=== PATIENT | male | born 1955 | race Caucasian/White ===

== ENCOUNTER 2024-04-02 22:46 | Observation (INO) | payer OTHER ==
[2024-04-03 00:48] LABS: BASO % 0.6 % (0-2.0); EOS % 2.1 % (0-4.5); HEMATOCRIT 42.9 % (35.4-49); HEMOGLOBIN 14.3 GM/dL (11.7-16.9); LYMPH % 29.9 % (8-40); MCH 30.3 pg (25.7-33.7); MCHC 33.3 g/dl (32.0-35.9); MEAN CELL VOLUME 90.8 fl (80-96); MEAN PLT VOLUME 7.7 fl (7.5-11.1); MONO % 7.6 % (3.8-10.2); NEUT % 59.8 % (42.8-82.8); PLATELET COUNT 244 10^3/uL (134-434); RBC 4.73 M/mm3 (4.00-5.60); RDW 13.3 % (11.9-15.9); WHITE BLOOD COUNT 8.7 K/mm3 (4.0-10.0)
[2024-04-03 00:57] LABS: INR 1.04 (0.83-1.09); PROTHROMBIN TIME (PATIENT) 11.7 SEC (9.7-13.0)
[2024-04-03 00:59] LABS: ACTIVATED PTT 37.5 SECONDS (25.2-36.5)
[2024-04-03 01:07] LABS: POTASSIUM 3.5 mmol/L (3.5-5.1)
[2024-04-03 01:08] LABS: CALCIUM 9.6 mg/dL (8.5-10.1)
[2024-04-03 01:09] LABS: ALBUMIN 4.1 g/dl (3.4-5.0); BLOOD UREA NITROGEN 21.3 mg/dL (7-18)
[2024-04-03 01:12] LABS: CREATININE 1.3 mg/dL (0.55-1.3)
[2024-04-03 01:17] LABS: BILIRUBIN,TOTAL 0.4 mg/dL (0.2-1); TOT PROT 7.8 g/dl (6.4-8.2)
[2024-04-03 06:07] VITALS: BMI 37.0
[2024-04-03 06:11] LABS: EPI CELLS 2 /uL (0-25.1); HYALINE CASTS 1 /uL (0-3.1); URINE APPEARANCE CLEAR; URINE BACTERIA 0 /uL (0-1359); URINE BILIRUBIN NEGATIVE (NEGATIVE); URINE COLOR YELLOW; URINE GLUCOSE (UA) NEGATIVE (NEGATIVE); URINE KETONE NEGATIVE (NEGATIVE); URINE LEUK ESTERASE NEGATIVE (NEGATIVE); URINE NITRITE NEGATIVE (NEGATIVE); URINE PROTEIN 2+ (NEGATIVE); URINE UROBILINOGEN 0.2 mg/dL (0.2-1.0); URINE WBC 5 /uL (0-25.8)
[2024-04-03 06:30] LABS: COCAINE, UR NEGATIVE (NEGATIVE); URINE AMPHETAMINES NEGATIVE (NEGATIVE); URINE BARBITURATES NEGATIVE (NEGATIVE)
[2024-04-03 06:32] LABS: OPIATES, URI NEGATIVE (NEGATIVE); PHENCYCLIDINE,URINE NEGATIVE (NEGATIVE)
[2024-04-03] MEDS: INSULIN ASPART SLIDING SCALE (NOVOLOG) 1 VIAL SQ SCH (06:54)
[2024-04-03 07:13] LABS: METHADONE, UR NEGATIVE (NEGATIVE); URINE BENZODIAZEPINES NEGATIVE (NEGATIVE)
[2024-04-03] MEDS: TAMSULOSIN HCL 0.4 MG CAP PO SCH (08:30)
[2024-04-03 08:59] LABS: URINE RBC 22.6 /uL (0-23.9)
[2024-04-03 09:42] LABS: BASO % 0.4 % (0-2.0); EOS % 1.8 % (0-4.5); HEMATOCRIT 40.1 % (35.4-49); HEMOGLOBIN 13.6 GM/dL (11.7-16.9); LYMPH % 22.9 % (8-40); MEAN CELL VOLUME 91.2 fl (80-96); MEAN PLT VOLUME 7.8 fl (7.5-11.1); MONO % 6.2 % (3.8-10.2); NEUT % 68.7 % (42.8-82.8); PLATELET COUNT 216 10^3/uL (134-434); RDW 13.3 % (11.9-15.9); WHITE BLOOD COUNT 8.6 K/mm3 (4.0-10.0)
[2024-04-03 09:50] LABS: POTASSIUM 3.9 mmol/L (3.5-5.1)
[2024-04-03 09:51] LABS: CALCIUM 9.2 mg/dL (8.5-10.1)
[2024-04-03 09:54] LABS: BLOOD UREA NITROGEN 18.8 mg/dL (7-18)
[2024-04-03 09:56] LABS: CREATININE 1.1 mg/dL (0.55-1.3); PHOSPHOROUS 4.3 mg/dL (2.5-4.9)
[2024-04-03 09:57] LABS: BILIRUBIN,TOTAL 0.5 mg/dL (0.2-1); TOT PROT 7.2 g/dl (6.4-8.2)
[2024-04-03] MEDS: HYDROCHLOROTHIAZIDE 12.5 MG CAPSULE (FP) PO SCH (10:53)
[2024-04-03] MEDS: ENOXAPARIN NA (PORCINE) 40 MG/0.4 ML DISP.SYRIN SQ SCH (10:53)
[2024-04-03] MEDS: ASPIRIN 81 MG CHEWABLE TABLETS PO SCH (17:54)
[2024-04-03] MEDS: CLOPIDOGREL BISULFATE 75 MG TABLET (FP) PO SCH (17:54)
[2024-04-03] MEDS ORDERED: ROSUVASTATIN CA 20 MG TABLET PO ONE (21:00)
[2024-04-03] MEDS: ROSUVASTATIN CA 20 MG TABLET PO ONE (21:27)
[2024-04-03] MEDS ORDERED: ROSUVASTATIN CA 20 MG TABLET PO SCH (22:00)
[2024-04-04 07:44] LABS: BASO % 0.6 % (0-2.0); EOS % 2.4 % (0-4.5); HEMOGLOBIN 13.9 GM/dL (11.7-16.9); LYMPH % 34.5 % (8-40); MCH 31.4 pg (25.7-33.7); MCHC 33.9 g/dl (32.0-35.9); MEAN CELL VOLUME 92.4 fl (80-96); MEAN PLT VOLUME 7.8 fl (7.5-11.1); MONO % 5.2 % (3.8-10.2); NEUT % 57.3 % (42.8-82.8); PLATELET COUNT 218 10^3/uL (134-434); RBC 4.44 M/mm3 (4.00-5.60); RDW 13.3 % (11.9-15.9); WHITE BLOOD COUNT 8.9 K/mm3 (4.0-10.0)
[2024-04-04 07:46] LABS: POTASSIUM 3.8 mmol/L (3.5-5.1)
[2024-04-04 07:52] LABS: ALBUMIN 3.9 g/dl (3.4-5.0); BLOOD UREA NITROGEN 21.7 mg/dL (7-18); MAGNESIUM 2.1 mg/dL (1.8-2.4)
[2024-04-04 07:54] LABS: CREATININE 1.2 mg/dL (0.55-1.3)
[2024-04-04 07:55] LABS: BILIRUBIN,TOTAL 0.5 mg/dL (0.2-1); TOT PROT 7.2 g/dl (6.4-8.2)
[2024-04-04 15:58] VITALS: BP 121/65; PULSE 73; RESP 18; TEMP 99.7
[2024-04-04] MEDS ORDERED: OMEGA-3 ACID ETHYL ESTERS (FATTY-ACIDS) 1 GM CAPSULE (FP) PO SCH (22:00)
== END 2024-04-04 18:31 | disposition home or self-care (01) ==
LOC: JER 22:46 → JERBED 04-03 03:25 → J7W 04-03 05:36 → J4W 04-03 21:58
PROVIDERS: ADMIT Internal Medicine; ATTEND Internal Medicine
PROC: 3E013GC Introduction of Other Therapeutic Substance into Subcutaneous Tissue, Percutaneous Approach (ICD-10-PCS; principal; 2024-04-03)
DX: I63.81 Other cerebral infarction due to occlusion or stenosis of small artery (principal); I10 Essential (primary) hypertension; E11.9 Type 2 diabetes mellitus without complications; E78.5 Hyperlipidemia, unspecified; F17.200 Nicotine dependence, unspecified, uncomplicated; N40.0 Benign prostatic hyperplasia without lower urinary tract symptoms; E66.9 Obesity, unspecified; Z68.37 Body mass index [BMI] 37.0-37.9, adult; Z79.01 Long term (current) use of anticoagulants; Z79.82 Long term (current) use of aspirin
CPT/HCPCS: 36415; 70450-TC; 70551-TC; 71045-TC-FY; 80053; 80061; 80307; 81003; 82550; 82553; 82607; 82962; 83036; 83735; 84100; 84443; 84484; 85025; 85610; 85730; 86780; 86850; 86900; 86901; 87086; 93005; 93010; 93306-TC; 93880-TC; 96372; 97116-GP; 97162-GP; 99285-25; G0378

== ENCOUNTER 2024-07-27 14:10 | Emergency (ER) | payer OTHER ==
[2024-07-27] MEDS ORDERED: ACETAMINOPHEN 325 MG TABLET (FP) ONE (14:43)
[2024-07-27] MEDS: ACETAMINOPHEN 500 MG TABLET (FP) PO ONE (14:47)
[2024-07-27 15:16] VITALS: BP 111/71; PULSE 92; RESP 18; TEMP 99; BMI 39.1
== END 2024-07-27 16:19 | disposition home or self-care (01) ==
LOC: JER 14:10
DX: R05.9 Cough, unspecified (principal); R09.81 Nasal congestion; J06.9 Acute upper respiratory infection, unspecified; R07.9 Chest pain, unspecified
CPT/HCPCS: 0241U-QW; 71046-TC-FY; 93005; 93010; 99285-25